=== PATIENT | male | born 1975 | race Caucasian/White ===

== ENCOUNTER 2016-09-09 02:24 | Emergency (ER) | payer SELFPAY ==
[2016-09-09 02:46] LABS: Hematocrit 42.1 % (42.0-52.0); Hemoglobin 14.3 gm/dL (13.5-18.0); Mean Cell Volume 86.8 fl (78-100); Mean Corpuscular Hemoglobin 29.5 pg (27-31); Mean Platelet Volume 8.4 fl (6.0-9.5); Neutrophil # 5.1 K/mm3 (1.3-6.0); Neutrophil % 46.9 % (42-75.0); Platelet Count 350 K/mm3 (150-450); Red Blood Count 4.85 M/mm3 (4.7-6.0); Red Cell Distribution Width 13.8 % (11.5-14.0); White Blood Count 10.8 K/mm3 (4.0-10.5)
[2016-09-09 02:58] LABS: INR 0.96 INR (0.90-1.10); Partial Thrombolplastin Time 26.1 Seconds (24-32)
[2016-09-09] MEDS ORDERED: KETOROLAC TROMETHAMINE 30 MG/ML VIAL IV ONE (02:59)
[2016-09-09] MEDS ORDERED: KETOROLAC TROMETHAMINE 30 MG/ML VIAL ONE (03:01)
[2016-09-09 03:04] LABS: ALT 48 U/L (19-67); AST 28 U/L (0-48); Albumin * 3.5 gm/dl (3.4-5.0); Alkaline Phosphatase * 112 U/L (50-170); Anion Gap 14.5 mmol/L (6.8-13.8); BUN/Creatinine Ratio 15.5 (9.0-21.6); Bilirubin, Total 0.2 mg/dL (0.0-1.1); Blood Urea Nitrogen 18 mg/dL (6-23); Ca. Corrected For Albumin 9.1 mg/dL (8.4-10.2); Carbon Dioxide 24.4 mmol/L (24-32.6); Chloride 108 mmol/L (97-106); Glucose * 130 mg/dL (70-110); Potassium 3.9 mmol/L (3.4-4.6); Sodium 143 mmol/L (132-142); Total Protein 7.2 gm/dL (6.2-8.2)
[2016-09-09 03:09] LABS: Troponin I Less than 0.017 ng/ml (0.00-0.10)
--- NOTE | 2016-09-09 03:21 | ERNOTE ---
Chest Pain/Cardiac HPI Chief Complaint: Chest Pain Time Seen by Provider: 09/09/16 02:53 Source: patient Exam Limitations: no limitations Immunizations: IMMUNIZATION HX Immunizations Up to Date Yes History of Influenza Vaccine No Hx Pneumococcal Vaccination No Allergies/Adverse Reactions: Allergies No Known Allergies Allergy (Verified 09/09/16 02:37) Home Medications: HOME MEDICATIONS Ibuprofen [Motrin] 800 mg PO PRN PRN 07/18/15 [Last Taken Unknown] Narrative: Pt states he was awakened by a pain "all over my chest" (pointing to the left chest). Timing: other - waxing/waning Severity/Quality: moderate, dull Location: substernal, left chest Chest Pain Radiation: no radiation Activities at Onset: sleep Modifying Factors - Improves: Present: nothing Modifying Factors - Worsens: Present: nothing Associated Symptoms: Absent: heartburn, nausea, vomiting, abdominal pain Prior Chest Pain/Cardiac Workup: Denies: prior chest pain Review of Systems - Review of Systems Constitutional: Present: no symptoms reported EYE: Present: no symptoms reported ENT: Present: no symptoms reported Respiratory: Absent: shortness of breath Cardiology: Present: See HPI Gastrointestinal/Abdominal: Absent: abdominal pain Genitourinary: Present: no symptoms reported Musculoskeletal: Present: back pain Skin: Present: no symptoms reported Neurological: Present: no symptoms reported Endocrine: Present: no symptoms reported Hematologic/Lymphatic: Present: no symptoms reported Psych: Present: no symptoms reported - Patient's Past Medical History Patient History - Medical: Other - Gout Patient History - Cardiac/Respiratory: No pertinent hx Patient History - Cancer: No Hx of Cancer Patient History - Surgical Procedures: Other - Knee surgery Patient History - Other: None - Social History Living Situations: spouse Abuse History: No History of abuse Psych History: No pertinent hx Smoking Status: Current every day smoker Have you smoked in the past 12 months: Yes Do you dip or chew tobacco: No Alcohol Use: none Drug Use: none - Immunizations Immunizations Up to Date: Yes Hx Pneumococcal Vaccination: No History of Influenza Vaccine: No Physical Exam - Physical Exam General Appearance: Present: wd/wn, alert, mild distress, anxious Eye Exam: Normal inspection: bilateral, PERRL: bilateral, EOMI: bilateral Respiratory: Present: no respiratory distress, normal breath sounds, no accessory muscle use, lungs clear, chest tenderness - left sternocostal border ribs 5&6 Cardiovascular/Chest: Present: regular rate, rhythm, no murmur Gastrointestinal/Abdominal: Present: normal bowel sounds, nontender, nondistended, soft Back Exam: Present: normal inspection Extremity Exam: Present: normal inspection, normal range of motion, no edema Neurological Exam: Present: alert, oriented, normal mood/affect, no motor/ sensory deficits Skin Exam: Present: normal color, warm/dry ED Progress - Results and Orders Patient's Lab Results:: I have reviewed the patient's lab results. Results and Orders: Laboratory Tests 09/09/16 09/09/16 09/09/16 02:36 02:36 02:36 WBC 10.8 H Hgb 14.3 Hct 42.1 Plt Count 350 PT 10.0 INR (Anticoag Therapy) 0.96 PTT (Simpson) 26.1 Sodium 143 H Potassium 3.9 Chloride 108 H Carbon Dioxide 24.4 Anion Gap 14.5 H BUN 18 Creatinine 1.16 Est GFR (Non-Af Amer) 74 D BUN/Creatinine Ratio 15.5 Random Glucose 130 H Calcium 9.0 Calcium Adj for Albumin 9.1 Total Bilirubin 0.2 AST 28 ALT 48 Alkaline Phosphatase 112 Troponin I Less than 0.017 Total Protein 7.2 Albumin 3.5 - Vital Signs Patient's Vital Signs:: I have reviewed the patient's vital signs. Vital Signs: Vital Signs 09/09/16 09/09/16 02:24 02:35 Temperature 36.9 C Pulse Rate 62 59 L Respiratory 14 Rate Blood Pressure 152/104 O2 Sat by Pulse 98 Oximetry - EKG EKG: NSR EKG read: Interp. by me - X-Ray X-Ray #1 X-Ray: chest Interpretation: Interp. by me X-ray Comments: normal - Progress/Reassessment Chief Complaint: Chest Pain Progress Note-Subjective: 09/09/16 03:30 Pt sleeping. 09/09/16 03:36 BP down to 141/87 09/09/16 03:40 Pt states he takes Ibuprofen PRN for back pain and it works very well. I suggested the same for this pain. Pt expressed understanding Departure - Departure Clinical Impression: Costochondritis Disposition: Home self-care Condition: Good Instructions: Costochondritis, [id number]
--- OUTSIDE RECORDS SUMMARY | 2016-09-09 03:27 | XMS REPORT | Continuity of Care Document ---
:1975 Author Organization [facility] ([facility]) Address [address] [place] [address] Phone [phone] Care Team Providers Name Role Phone Unavailable Primary Care Provider Unavailable Source Comments This disclosure is being made pursuant to the Care Everywhere program, applicable federal and state laws, and may not contain all informaitonavailable regarding this patient.[facility] ([facility]) Active Allergies and Adverse Reactions Not on File Current Medications Not on file Active Problems Not on file Social History Tobacco Use Types Packs/Day Years Used Date Never Assessed Plan of Care Health Maintenance Due Date Last Done Comments Hepatitis B Vaccine (1 of 3 - Primary Series) 1975 Tdap Vaccine 10/29/1986 Lipid Disorder Screening 10/29/1993 MMR Vaccine 10/29/1993 Td Vaccine 10/29/1993 Influenza Vaccine: Seasonal (#1) 01/18/2016 Results from Last 3 Months Not on file
--- OUTSIDE RECORDS SUMMARY | 2016-09-09 03:27 | XMS REPORT | Continuity of Care Document ---
:1975 Author Organization [facility] [place] [address] Care Team Providers Name Role Phone Unavailable Primary Care Provider Unavailable Source Comments This disclosure is being made pursuant to the Compliance 11 program and maynot contain all information available regarding this patient.[facility] Active Allergies and Adverse Reactions Not on File Current Medications Be aware that medications may not be up to date as of this document. Alwaysverify current medications with the patient. Not on file Active Problems Not on file Social History Tobacco Use Types Packs/Day Years Used Date Never Assessed Plan of Care Health Maintenance Due Date Last Done Comments Tetanus/Pertussis (1 - Tdap) 10/29/1994 Influenza Immunization (#1) 2016 Results from Last 3 Months Not on file
[2016-09-09 04:01] VITALS: BP 141/97
== END 2016-09-09 03:45 | disposition home or self-care (01) ==
LOC: ER 02:24
DX: M94.0 Chondrocostal junction syndrome [Tietze] (principal); F17.210 Nicotine dependence, cigarettes, uncomplicated